=== PATIENT | female | born 1960 | race Caucasian/White ===

== ENCOUNTER 2018-05-30 12:06 | Outpatient (CLI) | payer BC ==
[2018-05-30] VITALS (7 sets, daily range): BP systolic 120–152; BP diastolic 56–78; PULSE 61–83
[~2018-05-30] VITALS: Ht 160 cm; Wt 101.1 kg
[2018-05-30] MEDS ORDERED: VITAMIN B11000 MCG/M IM (12:24)
[2018-05-30] MEDS ORDERED: ERGOCALCIFER50000 IU PO (12:25)
[2018-05-30] MEDS ORDERED: FOLIC ACID 11 MG/TA1 PO (12:26)
[2018-05-30 13:55] LABS: GLUCOSE,CSF 46 mg/dL (40-70); TOTAL PROTEIN,CSF 64 mg/dL (15-45)
[2018-05-30 14:07] LABS: CSF APPEARANCE CLEAR; CSF COLOR COLORLESS
[2018-05-30 14:08] LABS: CSF MONONUCLEAR 83 % (70-100); CSF POLYMORPHONUCLEAR 17 % (0-6); CSF RBC 13 /mm3 (0-0)
[2018-06-03 13:26] LABS: ALBUMIN CSF 24.9 mg/dL (<=27.0); CSF IGG/ALBUMIN 0.12 (<=0.21); CSF,IGG 3.1 mg/dL (<=8.1)
[2018-06-03 13:45] LABS: CSF-IGG INDEX 0.43 (<=0.85); IGG/ALBUMIN SERUM 0.28 (<=0.40)
== END 2018-05-30 15:15 | disposition home or self-care (01) ==
LOC: COL.RAD 12:06
PROVIDERS: Psychiatry & Neurology Neurology
DX: G37.9 Demyelinating disease of central nervous system, unspecified (principal)